=== PATIENT | female | born 1955 | race Caucasian/White ===

== ENCOUNTER 2018-12-27 08:32 | Day surgery (SDC) | payer OTHER ==
[~2018-12-27 08:32] MED LIST: Lactated Ringers 1,000 ML IV SCH; Midazolam 1 MG/ML 2 ML SDV ONE; Propofol 200 MG/20 ML SDV ONE; Sodium Chloride 0.9% 10 ML Syringe FLUSH PRN
--- NOTE | 2018-12-27 09:36 | PCM.HPR ---
H & P Addendum review - H & P Addendum Review Date of Original H & P: 12/12/18 Date Reviewed: 12/27/18 Time Reviewed: 09:36 Patient was Examined: No Changes
[2018-12-27] MEDS ORDERED: Propofol 200 MG/20 ML SDV ONE (09:46)
[2018-12-27] MEDS ORDERED: Midazolam 1 MG/ML 2 ML SDV ONE (09:46)
--- NOTE | 2018-12-27 10:13 | PCM.OPNOTE ---
- General Post-Op/Procedure Note Date of Surgery/Procedure: 12/27/18 Operative Procedure(s): Colonoscopy Findings: Normal Pre Op Diagnosis: Screening Post-Op Diagnosis: Same Anesthesia Technique: MERCEDES Primary Surgeon: Que Adams Anesthesia Provider: Sarah Guerrero Complications: None Condition: Good
--- NOTE | 2018-12-27 14:40 | OR ---
Date of Procedure: 12/27/2018 PREOPERATIVE DIAGNOSIS: Colon screening. POSTOPERATIVE DIAGNOSIS: Normal colonoscopy. PROCEDURE: Colonoscopy. ANESTHESIA: IV sedation. DESCRIPTION OF PROCEDURE: The patient was brought to the procedure room where she was placed on her left side and IV sedation administered. Digital rectal exam was performed which was normal. Colonoscope was inserted and advanced to the level of the cecum with some difficulty getting to the right colon requiring changing to the supine position. The cecum was confirmed by identifying the appendiceal lumen and the ileocecal valve. Prep was good and surfaces were well visualized. Upon withdrawing the scope, the ascending, transverse, and descending colon were normal in appearance. Sigmoid colon and rectum were normal. Retroflexion was normal. Air was removed and the scope withdrawn. The patient tolerated the procedure well and returned to Recovery in stable condition. Recommend routine colon screening again in 10 years. YOHAN MARTINEZ MD /[id number]
== END 2018-12-27 11:39 | disposition home or self-care (01) ==
LOC: LL.SDS 08:32
PROVIDERS: ATTEND Surgery
DX: Z12.11 Encounter for screening for malignant neoplasm of colon (principal); I10 Essential (primary) hypertension; E11.9 Type 2 diabetes mellitus without complications; E78.5 Hyperlipidemia, unspecified; F32.9 Major depressive disorder, single episode, unspecified; F41.0 Panic disorder [episodic paroxysmal anxiety]; Z79.899 Other long term (current) drug therapy; Z79.84 Long term (current) use of oral hypoglycemic drugs
CPT/HCPCS: 45378; J2250; J2704; J7120